=== PATIENT | female | born 1990 | race African-American/Black ===

== ENCOUNTER 2024-10-20 23:40 | Outpatient (CLI) | payer OTHER, SELFPAY | END 2024-10-20 23:41 | disposition home or self-care (01) | LOC: AMB 10-21 14:31 | PROVIDERS: Visit Provider Internal Medicine | DX: R07.89 Other chest pain (principal); R42 Dizziness and giddiness | CPT/HCPCS: A0425; A0427 ==

== ENCOUNTER 2024-10-24 13:12 | Outpatient (CLI) | payer OTHER, SELFPAY | END 2024-10-24 13:13 | disposition home or self-care (01) | LOC: AMB 10-26 15:38 | PROVIDERS: Visit Provider Family Medicine | DX: R07.89 Other chest pain (principal) | CPT/HCPCS: A0425; A0429 ==